=== PATIENT | female | born 1985 | race Two or more races ===

== ENCOUNTER 2020-03-28 11:59 | Emergency (ER) | payer OTHER ==
[~2020-03-28] VITALS: Ht 157.5 cm; Wt 61.2 kg
[2020-03-28] MEDS ORDERED: PANTOPRAZOLE SO40 MG PO (12:26)
[2020-03-28] MEDS ORDERED: CLONAZEPAM0.5 MG PO (12:26)
[2020-03-28] MEDS ORDERED: ESCITALOPRAM OX10 MG PO (12:27)
[2020-03-28] MEDS ORDERED: ANALPRAM HC 2.530 GM RECTAL (17:02)
[2020-04-05] MEDS ORDERED: MEDROL4 MG (22:22)
== END 2020-03-28 17:23 | disposition home or self-care (01) ==
LOC: ER 11:59
DX: F41.8 Other specified anxiety disorders (principal); Z03.818 Encounter for observation for suspected exposure to other biological agents ruled out; R51 Headache

== ENCOUNTER → 2020-04-02 | Outpatient (CLI) | payer OTHER ==
[~2020-04-02] MED LIST: ANALPRAM HC 2.530 GM RECTAL; CLONAZEPAM0.5 MG PO; ESCITALOPRAM OX10 MG PO; MEDROL4 MG; PANTOPRAZOLE SO40 MG PO
== END | disposition home or self-care (01) ==
LOC: MRI 12:24
PROVIDERS: ATTEND Psychiatry & Neurology Neurology
DX: I67.82 Cerebral ischemia (principal)
CPT/HCPCS: 70551

== ENCOUNTER 2024-12-27 05:27 | Day surgery (SDC) | payer OTHER ==
[2024-12-21 12:50] VITALS: BP 121/72
[~2024-12-27] VITALS: Ht 157.5 cm; Wt 64.4 kg
[~2024-12-27 05:27] MED LIST changes: +EZALLOR SPRINKL10 MG PO
[2024-12-27] MEDS ORDERED: CEFTRIAXONE SODIUM 2,000 MG VIAL ONE (07:18)
[2024-12-27] MEDS ORDERED: DIBUCAINE 30 GM TUBE ONE (07:18)
[2024-12-27] MEDS ORDERED: BUPIVACAINE HCL/MPF 0.5% 30ML VIAL ONE (07:18)
[2024-12-27] MEDS ORDERED: POVIDONE-IODINE 118 ML BOTT TOP ONE (07:18)
[2024-12-27] MEDS ORDERED: HEMOSTATIC MATRIX 1 KIT KIT TOP ONE (07:19)
[2024-12-27] MEDS ORDERED: BUPIVACAINE LIPOSOME/PF 266 MG/20 ML VIAL IJ ONE (07:19)
[2024-12-27] MEDS ORDERED: METRONIDAZOLE/SODIUM CHLORIDE 500 MG/100 ML PIGGYBACK IV ONE (07:19)
[2024-12-27] MEDS ORDERED: OXYCODONE HCL5 MG PO (08:27)
[2024-12-27] MEDS ORDERED: TAMSULOSIN HCL 0.4 MG CAP PO ONE ×2 (08:30→10:24)
[2024-12-27] MEDS ORDERED: ONDANSETRON HCL 2 MG/ML VIAL ONE (10:14)
[2024-12-27] MEDS ORDERED: MORPHINE SULFATE 4 MG/ML VIAL IV ONE (10:20)
== END 2024-12-27 14:50 | disposition home or self-care (01) ==
LOC: CIR.AMB 05:27
PROVIDERS: ATTEND Surgery
DX: K64.2 Third degree hemorrhoids (principal); K64.4 Residual hemorrhoidal skin tags; K64.5 Perianal venous thrombosis; K62.5 Hemorrhage of anus and rectum; E78.00 Pure hypercholesterolemia, unspecified

== ENCOUNTER 2025-01-27 15:25 | Emergency (ER) | payer OTHER ==
[~2025-01-27] VITALS: Ht 157.5 cm; Wt 62.1 kg
[~2025-01-27 15:25] MED LIST changes: +OXYCODONE HCL5 MG PO
[2025-01-27] MEDS ORDERED: METOCLOPRAMIDE HCL 5 MG/ML VIAL IM STA (17:02)
[2025-01-27] MEDS ORDERED: KETOROLAC TROMETHAMINE 30 MG VIAL IV STA (17:03)
[2025-01-27] MEDS ORDERED: MECLIZINE HCL 25 MG TABLET PO STA (17:04)
[2025-01-27] MEDS ORDERED: hydrOXYzine PAMOATE 50 MG CAPSULE PO STA (17:04)
[2025-01-27] MEDS ORDERED: KETOROLAC TROMETHAMINE 30 MG VIAL ONE (17:16)
[2025-01-27] MEDS ORDERED: METOCLOPRAMIDE HCL 5 MG/ML VIAL ONE (17:17)
[2025-01-27] MEDS ORDERED: hydrOXYzine PAMOATE 50 MG CAPSULE PO ONE (17:17)
[2025-01-27] MEDS ORDERED: MECLIZINE HCL 25 MG TABLET PO ONE (17:17)
== END 2025-01-27 19:15 | disposition home or self-care (01) ==
LOC: ER 15:25
DX: H81.10 Benign paroxysmal vertigo, unspecified ear (principal)